=== PATIENT | male | born 1960 | race Caucasian/White ===

== ENCOUNTER 2022-04-30 22:42 | Inpatient (IN) | payer OTHER ==
[~2022-04-30] VITALS: Ht 160 cm; Wt 63.7 kg
[~2022-04-30 22:42] MED LIST: AMOX500T2; ASPIRIN; ATENOLOL; ATORVASTATIN; BUSPIRONE; Buspirone Hcl; CLOPIDOGREL; DICL75TA5; ENALAPRIL; FAMO40TA70; IBUP-2030; MECLIZINE; METF-414; PARO-41; PRAV40TA; PROCHLORPERAZINE
[2022-04-30] MEDS ORDERED: ASPIRIN 81MG TABLET PO ONE (23:00)
[2022-04-30] MEDS ORDERED: NITROGLYCERIN 0.4MG TABLET SL SL PRN (23:00)
[2022-04-30] MEDS ORDERED: HEPARIN 5000 UNITS/ML VIAL IV ONE (23:15)
[2022-04-30] MEDS ORDERED: MORPHINE SULFATE 4 MG/ML CPJ (NOT FOR IM USE) IV ONE (23:30)
[2022-04-30] MEDS ORDERED: MIDAZOLAM HCL 2 MG/2 ML VIAL ONE (23:41)
[2022-04-30] MEDS ORDERED: LIDOCAINE HCL 1% 10 MG/ML 10ML VIAL ONE (23:41)
[2022-04-30] MEDS ORDERED: IODIXANOL 320MG/ML 100 ML BOTTLE IV ONE (23:41)
[2022-04-30] MEDS ORDERED: FENTANYL CITRATE/PF 50MCG/ML 2ML VIAL ONE (23:41)
[2022-04-30 23:45] LABS: BASOPHILS % 0.5 % (0.0-2.0); EOSINOPHILS % 3.7 % (0.0-5.0); LYMPHOCYTES % 35.3 % (20.0-50.0); MEAN CORPUSCULAR HEMOGLOBIN 31.9 pg (28.0-32.0); MEAN CORPUSCULAR VOLUME 91.3 fL (80.0-94.0); MEAN PLATELET VOLUME 7.7 fl (7.4-10.4); MONOCYTES % 7.2 % (2.0-8.0); NEUTROPHILS % 53.3 % (40.0-76.0); PLATELET 209 x1000/uL (130-400); RED BLOOD CELL COUNT 4.71 mill/uL (4.7-6.1); RED CELL DISTRIBUTION WIDTH 12.4 % (11.6-14.6)
[2022-04-30] MEDS ORDERED: HEPARIN 1000 UNITS/ML 10ML ONE (23:45)
[2022-04-30 23:46] LABS: CHLORIDE 105 mEq/L (98-107)
[2022-04-30 23:52] LABS: INR 0.9; PARTIAL THROMBOPLASTIN TIME 25.4 sec (23.4-31.0); PROTHROMBIN TIME 10.1 sec (9.6-11.0)
[2022-05-01] VITALS (42 sets, daily range): BP systolic 96–148; BP diastolic 58–90
[2022-05-01] MEDS ORDERED: IODIXANOL 320MG/ML 100 ML BOTTLE IV ONE (00:11)
[2022-05-01] MEDS ORDERED: TICAGRELOR 90 MG TABLET PO ONE (00:21)
[2022-05-01] MEDS ORDERED: ASPIRIN 325MG TABLET ONE (00:21)
[2022-05-01] MEDS ORDERED: ACETAMINOPHEN 325MG TABLET PO PRN (00:45)
[2022-05-01] MEDS ORDERED: SODIUM CHLORIDE 0.45% 1,000 ML IV SCH (00:45)
[2022-05-01] MEDS ORDERED: MORPHINE SULFATE 2 MG/ML CPJ (NOT FOR IM USE) IV PRN (00:45)
[2022-05-01] MEDS ORDERED: ONDANSETRON HCL 4MG/2ML INJ IV PRN (00:45)
[2022-05-01] MEDS ORDERED: ATROPINE SULFATE 1MG/10ML SYR IV PRN (00:45)
[2022-05-01 05:37] LABS: BASOPHILS % 0.4 % (0.0-2.0); EOSINOPHILS % 1.4 % (0.0-5.0); HEMATOCRIT. 41.1 % (42.0-52.0); HEMOGLOBIN. 14.5 g/dL (14.0-18.0); MEAN CORPUSCULAR HEMOGLOBIN 32.3 pg (28.0-32.0); MEAN PLATELET VOLUME 7.7 fl (7.4-10.4); MONOCYTES % 5.1 % (2.0-8.0); NEUTROPHILS % 72.1 % (40.0-76.0); PLATELET 195 x1000/uL (130-400); RED BLOOD CELL COUNT 4.47 mill/uL (4.7-6.1); RED CELL DISTRIBUTION WIDTH 12.5 % (11.6-14.6)
[2022-05-01 05:42] LABS: CHLORIDE 106 mEq/L (98-107)
[2022-05-01] MEDS ORDERED: DEXTROSE 50% WATER 50ML SYRINGE IV PRN (07:30)
[2022-05-01] MEDS: BLOOD SUGAR DIAGNOSTIC STRIP TEST SCH ×4 (07:50→21:13)
[2022-05-01] MEDS ORDERED: NICARDIPINE 100MCG/ML 10ML VIAL (CATH LAB) IV ONE (08:39)
[2022-05-01] MEDS ORDERED: NITROGLYCERIN 50MCG/ML 10ML VIAL (CATH LAB) IV ONE (08:39)
[2022-05-01] MEDS: TICAGRELOR 90 MG TABLET PO SCH ×2 (08:40→17:58)
[2022-05-01] MEDS: INSULIN LISPRO 100 UNITS/ML SUBCUT SCH ×4 (08:40→21:13)
[2022-05-01] MEDS: ASPIRIN 325MG TABLET PO SCH (08:40)
[2022-05-01] MEDS ORDERED: NALOXONE HCL 0.4MG/ML VIAL IV PRN (11:45)
[2022-05-01] MEDS ORDERED: ATORVASTATIN CALCIUM 40MG TABLET PO SCH (21:00)
[2022-05-02] VITALS (30 sets, daily range): BP systolic 81–132; BP diastolic 59–81
[2022-05-02 05:47] LABS: BASOPHILS % 0.3 % (0.0-2.0); EOSINOPHILS % 1.9 % (0.0-5.0); HEMOGLOBIN. 15.5 g/dL (14.0-18.0); LYMPHOCYTES % 20.2 % (20.0-50.0); MEAN CORPUSCULAR HEMOGLOBIN 31.7 pg (28.0-32.0); MEAN CORPUSCULAR VOLUME 92.3 fL (80.0-94.0); MEAN PLATELET VOLUME 7.9 fl (7.4-10.4); MONOCYTES % 7.2 % (2.0-8.0); NEUTROPHILS % 70.4 % (40.0-76.0); PLATELET 202 x1000/uL (130-400); RED BLOOD CELL COUNT 4.88 mill/uL (4.7-6.1); RED CELL DISTRIBUTION WIDTH 12.7 % (11.6-14.6)
[2022-05-02 05:58] LABS: CHLORIDE 107 mEq/L (98-107)
[2022-05-02] MEDS: BLOOD SUGAR DIAGNOSTIC STRIP TEST SCH ×2 (06:49→12:42)
[2022-05-02] MEDS: INSULIN LISPRO 100 UNITS/ML SUBCUT SCH ×2 (06:50→13:30)
[2022-05-02] MEDS: ASPIRIN 325MG TABLET PO SCH (08:42)
[2022-05-02] MEDS: TICAGRELOR 90 MG TABLET PO SCH (08:42)
== END 2022-05-02 15:00 | disposition home or self-care (01) | DRG 174 ==
LOC: ER 22:42 → CVICU 05-01 00:45
PROVIDERS: ADMIT Internal Medicine Cardiovascular Disease; ATTEND Internal Medicine Cardiovascular Disease
PROC: 027035Z Dilation of Coronary Artery, One Artery with Two Drug-eluting Intraluminal Devices, Percutaneous Approach (ICD-10-PCS; principal; 2022-05-01)
PROC: 4A023N7 Measurement of Cardiac Sampling and Pressure, Left Heart, Percutaneous Approach (ICD-10-PCS; 2022-05-01)
PROC: B2111ZZ Fluoroscopy of Multiple Coronary Arteries using Low Osmolar Contrast (ICD-10-PCS; 2022-05-01)
PROC: B2151ZZ Fluoroscopy of Left Heart using Low Osmolar Contrast (ICD-10-PCS; 2022-05-01)
DX: I21.3 ST elevation (STEMI) myocardial infarction of unspecified site (principal); E11.9 Type 2 diabetes mellitus without complications; I10 Essential (primary) hypertension; Z20.822 Contact with and (suspected) exposure to COVID-19; E78.5 Hyperlipidemia, unspecified; I25.10 Atherosclerotic heart disease of native coronary artery without angina pectoris; I25.2 Old myocardial infarction; Z95.5 Presence of coronary angioplasty implant and graft
CPT/HCPCS: 36415; 71045; 80048; 80053; 82962; 83036; 83880; 84484; 85025; 85347; 87426; 92928; 93005; 93306; 93458; 99291; C1769; C1874; C1887; C1893; C9803; J1644; J1815; J2250; J3010; J3490; Q9967; J8499